=== PATIENT | male | born 1980 | race Caucasian/White ===

== ENCOUNTER 2016-04-01 16:37 | Emergency (ER) | payer SELFPAY ==
[~2016-04-01] VITALS: Ht 182.9 cm; Wt 78.2 kg
[~2016-04-01 16:37] MED LIST: HYDROCODON-ACE1 EAC7 PO; MOTRIN600 MG PO; NAPROXEN500 MG PO; NOHOMEMEDS; ULTRAM50 MG PO
[2016-04-01 16:53] VITALS: BP 121/71
[2016-04-01] MEDS ORDERED: FLEXERIL10 MG PO (18:17)
[2016-04-01] MEDS ORDERED: PERCOCET 5/31 TABLET PO (18:17)
[2016-04-01] MEDS ORDERED: NAPROSYN500 MG PO (18:17)
== END 2016-04-01 18:52 | disposition home or self-care (01) ==
LOC: RME 16:37 → EME 16:37 → RME 18:52
DX: S43.51XA Sprain of right acromioclavicular joint, initial encounter (principal); W01.0XXA Fall on same level from slipping, tripping and stumbling without subsequent striking against object, initial encounter
CPT/HCPCS: 73030; 99281; 99284

== ENCOUNTER 2016-07-26 15:38 | Emergency (ER) | payer SELFPAY ==
[~2016-07-26] VITALS: Ht 182.9 cm; Wt 74.1 kg
[~2016-07-26 15:38] MED LIST changes: +FLEXERIL10 MG PO; +NAPROSYN500 MG PO; +PERCOCET 5/31 TABLET PO
[2016-07-26] MEDS ORDERED: NORCO 5/3251 TABLET PO (18:15)
[2016-07-26] MEDS ORDERED: NAPROSYN500 MG PO (18:15)
[2016-07-26 18:41] VITALS: BP 128/73
== END 2016-07-26 18:44 | disposition home or self-care (01) ==
LOC: EME 15:38
DX: S63.501A Unspecified sprain of right wrist, initial encounter (principal); W18.39XA Other fall on same level, initial encounter; Y93.61 Activity, american tackle football; F17.200 Nicotine dependence, unspecified, uncomplicated
CPT/HCPCS: 73110; 99281; 99284

== ENCOUNTER 2016-09-11 22:49 | Inpatient (IN) | payer SELFPAY ==
[~2016-09-11] VITALS: Ht 180.3 cm; Wt 72.0 kg
[~2016-09-11 22:49] MED LIST changes: +NORCO 5/3251 TABLET PO
[2016-09-11 23:56] LABS: EOSINOPHIL (%) 0 % (0-5); HEMATOCRIT 49.4 % (38.0-50.0); IMMATURE GRANULOCYTE (%) 0.8 % (0.0-0.7); IMMATURE GRANULOCYTE COUNT 0.2 K/uL; INSTRUMENT ABS NEUTROPHIL CT 18.3 K/uL; LYMPHOCYTE COUNT 1.2 K/uL (1.0-2.8); MCHC 33.6 G/DL (30.0-36.0); MCV 86.4 FL (86-99); MEAN PLAT.VOLUME 9.6 uM^3 (9.0-12.4); MONOCYTE (%) 3.4 % (3-12); MONOCYTE COUNT 0.7 K/uL (0-0.8); NEUTROPHIL (%) 89.8 % (45-76); NEUTROPHIL COUNT 18.3 K/uL (1.8-6.4); PLATELET COUNT 333 K/uL (156-360); RBC DIS.WIDTH-CV 13.2 % (11.8-14.6); RBC DIS.WIDTH-SD 40.8 % (39-53); RED BLOOD COUNT 5.72 M/uL (4.00-5.50); WHITE BLOOD COUNT 20.4 K/uL (4.1-10.2)
[2016-09-12 00:08] LABS: CHLORIDE 96 mEq/L (99-109); POTASSIUM 5.2 mEq/L (3.7-5.4); SODIUM 139 mEq/L (136-147)
[2016-09-12 00:10] LABS: GLUCOSE 157 mg/dL (70-99)
[2016-09-12 00:11] LABS: ANION GAP 20 MEQ/L (2-14)
[2016-09-12 00:12] LABS: TOTAL BILIRUBIN 0.6 mg/dL (0.0-1.0)
[2016-09-12 00:13] LABS: ALKALINE PHOSPHATASE 76 IU/L (3-129)
[2016-09-12 00:14] LABS: GFR ESTIMATE (CALCULATED) 28 mL/min/
[2016-09-12 00:15] LABS: UREA NITROGEN (BUN) 42 mg/dL (9-23)
[2016-09-12 00:17] LABS: LIPASE 8 U/L (1.0-51.0)
[2016-09-12 00:36] LABS: CREATINE KINASE 304 IU/L (1-294); TOTAL CK 304 IU/L (1-294)
[2016-09-12 00:42] LABS: CK-MB 2.6 ng/mL (0.0-4.9)
[2016-09-12 01:51] LABS: ADD MIUA? YES; BILIRUBIN NEGATIVE; BLOOD MODERATE; COLOR YELLOW ((YELLOW)); GLUCOSE (STRIP) NEGATIVE; KETONES 5; LEUKOCYTES NEGATIVE; NITRITE NEGATIVE; PROTEIN (STRIP) 30; SPECIFIC GRAVITY 1.015 (1.000-1.030); UROBILINOGEN 0.2 MG/DL (0.2-1.0)
[2016-09-12 02:12] LABS: BACTERIA NONE SEEN /HPF; CASTS PRESENT /LPF; EPITHELIAL CELLS 1+ /HPF; FINE GRANULAR CASTS 0-5 /LPF; MUCUS 1+ /LPF; RED BLOOD CELLS 0-5 /HPF (0-5)
[2016-09-12 05:50] VITALS: BP 121/59
[2016-09-12 07:22] VITALS: BP 114/59
[2016-09-12 09:21] LABS: ANION GAP 10 MEQ/L (2-14); CHLORIDE 102 MEQ/L (99-109); GLUCOSE 119 mg/dL (70-99); SAMPLE HEMOLYSIS CHECK 0; SAMPLE ICTERIC CHECK 0; SAMPLE LIPEMIA CHECK 0; SODIUM 137 MEQ/L (136-147); UREA NITROGEN (BUN) 35 mg/dL (9-23)
[2016-09-12 09:27] LABS: GFR ESTIMATE (CALCULATED) 53 mL/min/
[2016-09-12 09:32] LABS: EOSINOPHIL (%) 0.1 % (0-5); HEMATOCRIT 41.5 % (38.0-50.0); IMMATURE GRANULOCYTE (%) 0.6 % (0.0-0.7); IMMATURE GRANULOCYTE COUNT 0.1 K/uL; INSTRUMENT ABS NEUTROPHIL CT 10.6 K/uL; LYMPHOCYTE COUNT 1.3 K/uL (1.0-2.8); MCH 29.3 PG (29.0-34.0); MCV 88.9 FL (86-99); MEAN PLAT.VOLUME 9.9 uM^3 (9.0-12.4); MONOCYTE (%) 7.7 % (3-12); NEUTROPHIL (%) 81.6 % (45-76); NEUTROPHIL COUNT 10.6 K/uL (1.8-6.4); PLATELET COUNT 263 K/uL (156-360); RBC DIS.WIDTH-CV 13.2 % (11.8-14.6); RBC DIS.WIDTH-SD 43.4 % (39-53); RED BLOOD COUNT 4.67 M/uL (4.00-5.50)
[2016-09-12] MEDS ORDERED: ADVIL200 MG PO (10:25)
[2016-09-12 10:29] VITALS: BP 122/72
[2016-09-12 13:01] LABS: HPCA INDEX 0.09
[2016-09-12 13:02] LABS: HIV INDEX 0.11; HIV-1/2 AB/AG COMBO Nonreactive
== END 2016-09-12 15:52 | disposition home or self-care (01) | DRG 923 ==
LOC: EME 22:49 → EDOF 09-12 04:19 → 5EAST 09-12 05:36
PROVIDERS: Hospitalist; Physician Assistant
DX: T67.0XXA Heatstroke and sunstroke, initial encounter (principal); N17.9 Acute kidney failure, unspecified; E86.0 Dehydration; M79.1 Myalgia; R11.2 Nausea with vomiting, unspecified; R19.7 Diarrhea, unspecified; R25.3 Fasciculation; F17.200 Nicotine dependence, unspecified, uncomplicated
CPT/HCPCS: 71250; 74176; 76770; 80053; 80069; 81003; 82550; 82553; 83690; 85025; 86703; 86803; 99281; 99285; J1644; J2405; J3360; J7030

== ENCOUNTER 2017-07-23 09:22 | Emergency (ER) | payer SELFPAY ==
[~2017-07-23] VITALS: Ht 180.3 cm; Wt 76.7 kg
[~2017-07-23 09:22] MED LIST changes: +ADVIL200 MG PO
[2017-07-23] MEDS ORDERED: MOTRIN800 MG PO (11:03)
[2017-07-23 11:09] VITALS: BP 126/79
== END 2017-07-23 11:10 | disposition home or self-care (01) ==
LOC: EME 09:22
DX: M79.672 Pain in left foot (principal); F17.200 Nicotine dependence, unspecified, uncomplicated
CPT/HCPCS: 73630; 99281; 99284